=== PATIENT | male | born 1985 | race Caucasian/White ===

== ENCOUNTER 2019-01-06 13:42 | Emergency (ER) | payer MEDICAID, OTHER ==
[~2019-01-06] VITALS: Ht 190.5 cm; Wt 90.0 kg
[2019-01-06 13:53] VITALS: BP 121/63
[2019-01-06] MEDS ORDERED: azithromycin 250mg tablet PO ONE (14:10)
[2019-01-06] MEDS ORDERED: CefTRIAXone 1000mg IM Kit (w/lidocaine diluent) IM ONE (14:10)
[2019-01-06 14:28] LABS: CLARITY,URINE SLIGHTLY CLOUDY (Clear); COLOR,URINE YELLOW (Yellow); GLUCOSE, URINE NEGATIVE (Neg); KETONES,URINE NEGATIVE (Neg); LEUKOCYTE ESTERASE ,URINE MODERATE (Neg); NITRITES, URINE NEGATIVE (Neg); OCCULT BLOOD,URINE SMALL (Neg); PROTEIN,URINE TRACE mg/dl (Neg)
[2019-01-06 14:31] LABS: UA COLLECTION TYPE CLN CATCH MIDSTREAM
[2019-01-06 14:34] LABS: WBC,URINE TNTC /HPF (0-4)
[2019-01-06 14:35] LABS: RBC,URINE 0-2 /HPF (0-2)
[2019-01-06 14:36] LABS: BACTERIA,URINE NONE SEEN /HPF (Neg); MUCUS STRANDS NONE SEEN /LPF (Neg); SQUAMOUS EPITHELIAL CELL,UR FEW /LPF (FEW)
== END 2019-01-06 14:31 | disposition home or self-care (01) ==
LOC: ER 13:43
DX: R30.0 Dysuria (principal); R36.9 Urethral discharge, unspecified; Z72.51 High risk heterosexual behavior
CPT/HCPCS: 36415; 81001; 87088; 87491; 87591; 96372; 99283; J0696; 87077; 87185

== ENCOUNTER 2022-01-24 10:49 | Emergency (ER) | payer MEDICAID ==
[~2022-01-24] VITALS: Ht 190.5 cm; Wt 79.5 kg
[2022-01-24 11:05] VITALS: BP 140/90
== END 2022-01-24 12:26 | disposition home or self-care (01) ==
LOC: ER 10:50
DX: A51.49 Other secondary syphilitic conditions (principal); F17.200 Nicotine dependence, unspecified, uncomplicated; F12.10 Cannabis abuse, uncomplicated; F15.10 Other stimulant abuse, uncomplicated; Z59.00 Homelessness unspecified
CPT/HCPCS: 99282

== ENCOUNTER 2022-03-10 13:30 | Emergency (ER) | payer MEDICAID ==
[~2022-03-10] VITALS: Ht 177.8 cm; Wt 68.0 kg
[2022-03-10] MEDS ORDERED: normal saline 1000ML IV soln IVB ONE (14:15)
--- NOTE | 2022-03-10 14:20 | NUR ---
patient is refusing an IV
[2022-03-10] MEDS ORDERED: ondansetron/PF 4mg/2ml inj IV ONE (14:50)
[2022-03-10 15:01] LABS: BASOPHILS # (AUTO) 0.1 X10'3 (0-0.2); BASOPHILS % (AUTO) 0.6 % (0-1); EOSINOPHILS # (AUTO) 0.3 X10'3 (0-0.9); EOSINOPHILS % (AUTO) 3.1 % (0-6); HEMATOCRIT 38.7 % (42.0-52.0); LYMPHOCYTES % (AUTO) 11.2 % (21-51); MEAN CORPUSCULAR HEMOGLOBIN 30.5 PG (27.0-31.0); MEAN CORPUSCULAR HGB CONC 33.6 g/dL (33.0-36.5); MEAN CORPUSCULAR VOLUME 90.6 FL (78-98); MEAN PLATELET VOLUME 8.5 FL (7.4-10.4); MONOCYTES # (AUTO) 0.7 X10'3 (0-0.9); NEUTROPHILS # (AUTO) 6.9 X10'3 (1.8-7.7); NEUTROPHILS % (AUTO) 77.1 % (42-75); PLATELET COUNT 241 X10'3 (140-440); RED BLOOD COUNT 4.27 X10'6 (4.70-6.10); RED CELL DISTRIBUTION WIDTH 15.8 % (11.5-14.5)
[2022-03-10 15:10] LABS: ALANINE AMINOTRANSFERASE 51 U/L (12-78); ALBUMIN 3.6 G/DL (3.4-5.0); ALKALINE PHOSPHATASE 95 IU/L (46-116); ANION GAP 7 (8-16); ASPARTATE AMINO TRANSFERASE 43 U/L (10-37); BILIRUBIN,TOTAL 0.2 MG/DL (0.1-1.0); BLOOD UREA NITROGEN 13 MG/DL (7-18); BUN/CREATININE RATIO 12.6 (5.4-32.0); CALCIUM 8.9 MG/DL (8.5-10.1); CHLORIDE 109 MMOL/L (99-107); CREATININE 1.03 MG/DL (0.60-1.10); GLUCOSE 94 MG/DL (70-104); POTASSIUM 3.6 MMOL/L (3.5-5.1); SODIUM 145 MMOL/L (135-145); TOTAL CARBON DIOXIDE 29.5 MMOL/L (24-32); TOTAL PROTEIN 7.2 G/DL (6.4-8.2); eGFR 82 ML/MIN
[2022-03-10 15:17] LABS: ETHANOL < 0.010 GM/DL (0.0-0.010)
[2022-03-10 18:11] VITALS: BP 137/84
== END 2022-03-10 18:12 | disposition home or self-care (01) ==
LOC: ER 13:31
DX: T50.7X1A Poisoning by analeptics and opioid receptor antagonists, accidental (unintentional), initial encounter (principal); R40.0 Somnolence; Z59.00 Homelessness unspecified; F17.200 Nicotine dependence, unspecified, uncomplicated; F12.10 Cannabis abuse, uncomplicated; F15.10 Other stimulant abuse, uncomplicated; Y92.89 Other specified places as the place of occurrence of the external cause
CPT/HCPCS: 36415; 80053; 80320; 85025; 96361; 96374; 99283; J2405; J7030

== ENCOUNTER 2024-10-10 13:10 | Emergency (ER) | payer MEDICAID ==
[~2024-10-10] VITALS: Ht 190.5 cm; Wt 80.6 kg
[2024-10-10] MEDS: azithromycin 250mg tablet PO ONE (14:16)
[2024-10-10] MEDS: CefTRIAXone 500MG IM Kit w/LIDOcaine IM ONE (14:18)
--- NOTE | 2024-10-10 14:32 | Physician Documentation ---
History of Present Illness ~ Chief Complaint: STD Stated Complaint: STD CHECK Time Seen by MD: 14:00 OK to notify your PCP?: Yes Primary Medical Doctor: None Source: patient Mode of Arrival: POV Exam Limitations: no limitations HPI 39-year-old male who is here due to concern about chlamydia. States you outside chlamydia about a year ago and he reports similar symptoms. He states "every time I have chlamydia I get sores on my thighs." No penile discharge, pain with urination, swollen lymph nodes, abdominal or pelvic pain. He reports new sexual contact and is concerned that sexual partner had chlamydia. Medication Reconciliation Allergies: Coded Allergies: No Known Allergies (Unverified , 09/14/18) Past Medical History Past Medical History: *INFECTIOUS DZ* Past Surgical History: noncontributory Alcohol Use: Abuse Drug Use: marijuana, methamphetamine Lives In: Homeless Review of Systems All Other Systems at this time: Reviewed and Negative Physical Exam Vital Signs: Temperature: 98.1, Source: Oral, Heart Rate: 97, Respiratory Rate: 16, BP: 141/82, Pulse Oximetry: 100, Weight: 80.600 Oxygen Flow Rate: 0 Physical Exam General Appearance: Alert, WD/WN. NAD. HEENT: NCAT, PERRL, EOMI. Neck: Supple, trachea midline. Cardiovascular: RRR. No m/r/g. Lungs: CTAB. Breathing unlabored Extremities: Normal inspection. No edema. Skin: Warm/dry, normal color Neurological: Alert and oriented x4, normal gait. Psychiatric: Affect congruent with mood. Progress Results/Orders Results/Orders Orders - MANI SEGOVIA Chlam/Gc Amp Ur (10/10/24 13:16) Completed Orders - MANI SEGOVIA Ceftriaxone 500 Im W/Lidocaine (Rocephin (10/10/24 14:05) Azithromycin Tablet (Zithromax Tablet) (10/10/24 14:05) Medications Received in ER Medications (Trade) Dose Ordered Sig/Fidelina Route PRN Reason Start Time Stop Time Status Last Admin Dose Admin (Rocephin 500MG IM kit (w/1% LIDOcaine)) 500 mg ONCE ONCE IM 10/10/24 14:05 10/10/24 14:06 DC 10/10/24 14:18 500 MG (Zithromax tablet) 2,000 mg ONCE ONCE PO 10/10/24 14:05 10/10/24 14:06 DC 10/10/24 14:16 2,000 MG Vital Signs 10/10/24 13:10 Temp 98.1 Pulse 97 Resp 16 B/P (MAP) 141/82 Pulse Ox 100 O2 Flow Rate 0 Laboratory Tests Test 10/10/24 13:15 Medical Decision Making Genital Diff Dx:Considerations: Include: Abscess, Balanitis, Balanoposthitis, Cellulitis, Epididymitis, Entrapment injury, Clyde's gangrene, Foreign body, Facture penis, Hydrocele, Inguinal hernia, Post-op Complication, Paraphimosis, Prostatitis, Priapism, Syphilis, Testicular torsion, Torsion-epididymis, Torsion-appendiceal, Urinary retention, Urethritis, Urethritis-chlamydial, Urethritis-gonococcal, UTI, Other Departure Time of Disposition: 14:29 Disposition: 01 HOME / SELF CARE / HOMELESS Impression: Primary Impression: Sexually transmitted disease exposure Condition: Stable Discharge Instructions: Sexually Transmitted Disease Additional Instructions: WE TREATED YOU EMPIRICALLY FOR GONORRHEA AND CHLAMYDIA; HOWEVER, THERE ARE NUMEROUS OTHER INFECTIONS THAT ARE SPREAD SEXUALLY THAT YOU SHOULD BE TESTED FOR WELL DUE TO YOUR HISTORY OF UNPROTECTED INTERCOURSE. YOU NEED TO F/U WITH PCP FOR FULL STI TESTING YOU ALSO NEED TO MAKE SURE TO USE CONDOMS TO TRY TO DECREASE SPREAD OF INFECTION. Referrals: NO PRIMARY CARE PROVIDER (PCP) Education Educated: Patient Educated regarding: diagnosis, treatment, need for follow up Signature Scribe Signature: X Attestation: MANI RANDOLPH October 10, 2024 14:32
[2024-10-10 14:38] VITALS: BP 138/82; PULSE 74; RESP 17; TEMP 98.1; O2SAT 99
[2024-10-13 15:11] LABS: CHLAMYDIA TRACHOMATIS, NAA Negative (Negative)
== END 2024-10-10 14:39 | disposition home or self-care (01) ==
LOC: ER 13:10
DX: Z20.2 Contact with and (suspected) exposure to infections with a predominantly sexual mode of transmission (principal); F12.90 Cannabis use, unspecified, uncomplicated; F15.90 Other stimulant use, unspecified, uncomplicated; F10.10 Alcohol abuse, uncomplicated; Z59.00 Homelessness unspecified; Y90.9 Presence of alcohol in blood, level not specified
CPT/HCPCS: 36415; 87491; 87591; 96372; 99283; J0696

== ENCOUNTER 2025-05-08 06:39 | Emergency (ER) | payer MEDICAID ==
[~2025-05-08] VITALS: Ht 190.5 cm; Wt 77.7 kg
[2025-05-08 06:59] VITALS: BP 110/77; PULSE 84; RESP 16; TEMP 98.8; O2SAT 98
== END 2025-05-08 10:07 | disposition left against medical advice (07) ==
LOC: ER 06:40
DX: Z11.3 Encounter for screening for infections with a predominantly sexual mode of transmission (principal)
CPT/HCPCS: 99281